=== PATIENT | female | born 1995 | race Caucasian/White ===

== ENCOUNTER 2020-04-24 11:22 | Outpatient (CLI) | payer OTHER, SELFPAY ==
[2020-04-24 12:13] LABS: Beta HCG Quantitative 167.73 mIU/ML
== END 2020-04-24 11:23 | disposition home or self-care (01) ==
PROVIDERS: PCP Internal Medicine; Visit Provider Obstetrics & Gynecology
DX: N92.5 Other specified irregular menstruation (principal)
CPT/HCPCS: 36415; 84702

== ENCOUNTER 2020-05-09 06:46 | Outpatient (RCR) | payer OTHER, SELFPAY ==
[2020-05-01 08:05] LABS: Beta HCG Quantitative 8.14 mIU/ML
[2020-05-09 07:46] LABS: Beta HCG Quantitative < 2.39 mIU/ML
== END 2020-07-30 23:59 | disposition home or self-care (01) ==
LOC: ANHLAB 06:46
PROVIDERS: PCP Internal Medicine; Visit Provider Obstetrics & Gynecology
DX: O03.4 Incomplete spontaneous abortion without complication (principal)
CPT/HCPCS: 36415; 84702

== ENCOUNTER 2020-10-22 09:29 | Outpatient (CLI) | payer OTHER, SELFPAY ==
--- NOTE | ~2020-10-22 | US_ITS ---
EXAMINATION: US OB /maternal detail EXAM DATE: 10/22/2020 10:41 INDICATION: anatomy. 2nd trimester. TECHNIQUE: Pelvic obstetrical transabdominal sonogram was performed by a technologist. There are mu ltiple grayscale and Doppler images available for interpretation. There are no earlier studies of th is gestation for comparison. FINDINGS: There is a single fetus identified in vertex presentation with a heart rate of 142 beats pe r minute. The placenta is located in the posterior position. There is no sonographic evidence of ret roplacental hemorrhage identified. The amniotic fluid index is 14.4 centimeters, which is normal. Shanon cental margin to internal cervical os distance is 5.6 cm. BIOMETRIC DATA: Biparietal diameter (BPD): 5.5cm ----------------> 22 weeks 6 days. Head circumference (HC): 19.8 cm ----------------> 22 weeks 0 days. Abdominal circumference (AC): 16.9 cm ----------> 21 weeks 6 days. Femur length (FL): 3.8 cm --------------------------> 22 weeks 1 day. These measurements are concordant. HC/AC ratio is 1.17 (The 5th -- 95th percentile range is 1.05-1.22. Estimated weight is 469 g +/- 70 g. This is the 82nd percentile when the currently reported cl inical gestation age 21 weeks 2 days, clinical estimated date of delivery (DIANE-OPE) 03/02/2021 is used. estimated gestational age based on measurements from this exam is 22 weeks 2 days, with an est imated date of delivery (DIANE-AUA) 02/23/2021. ANATOMIC SURVEY: The following anatomy is identified and is sonographically normal in appearance: Cerebral ventricles Cerebellum Cisterna magna Nuchal fold CTL-spine Four-chamber heart Diaphragm Stomach Kidneys Bladder Three-vessel cord Cord insertion IMPRESSION: 1. Single fetus in vertex presentation with heart rate 142 beats per minute. 2. Estimated weight of 469 grams, 82nd percentile using the currently reported clinical gestat ion age of 21 weeks 2 days, DIANE(OPE) 03/02/2021. 3. Normal anatomic survey and Amniotic Fluid Index. Reviewed, dictated and finalized at location B. ARCH NEUROPSYCHOLOGIST IMPRESSION: 1. Single fetus in vertex presentation with heart rate 142 beats per minute. 2. Estimated weight of 469 grams, 82nd percentile using the currently re ported clinical gestation age of 21 weeks 2 days, DIANE(OPE) 03/02/2021. 3. Normal anatomic survey and Amniotic Fluid Index.
== END 2020-10-22 09:30 | disposition home or self-care (01) ==
LOC: ANHIMG 09:46
PROVIDERS: PCP Internal Medicine; Visit Provider Student in an Organized Health Care Education/Training Program
DX: Z34.92 Encounter for supervision of normal pregnancy, unspecified, second trimester (principal); Z3A.21 21 weeks gestation of pregnancy
CPT/HCPCS: 76805

== ENCOUNTER 2021-02-11 21:00 | Observation (INO) | payer OTHER, SELFPAY ==
--- NOTE | 2021-02-11 21:00 | PC.NURSE ---
This patient, Jose Arzola, admitted to the OB room Labor/Delivery/Recovery 106 for observation. Patient/family oriented to hospital policies and general routines including ID bracelet, bed and alarms, visiting hours, pain management, procedures, bathroom and other care routines, personal items, smoking policy, room service/diet, and visiting hours. Patient/Family are encouraged to report perceived risks to care and to ask questions if they do not understand what they are told or what they should do.
[2021-02-11 21:11] VITALS: TEMP 36.6
--- NOTE | 2021-02-11 21:15 | PC.NURSE ---
Contractions all evening. Increased in intensity for past hour. No leakage of fluid.
--- NOTE | 2021-02-11 22:45 | PC.NURSE ---
Pt has not felt contractions since arrival. 2 contractiions noted with some irritabilty noted. Discussed labor and increase in contraction intensity with labor. Pt to be discharged to home. Pt verablizes understanding on when to return.
--- NOTE | 2021-02-12 07:00 | P.PNOB_ITS ---
OB - Triage/Final Diagnosis Visit Information Date of evaluation: 02/11/21 Reason for evaluation: threatened labor Comments/Additional reasons for admission: I have assessed the risk for this patient, Jose Arzola, and determined that she would benefit from obse rvation care. Evaluation Vital signs: Vital Signs - 24 hr 02/11/21 21:11 Temperature 36.6 C
== END 2021-02-11 22:55 | disposition home or self-care (01) ==
PROVIDERS: Admitting Provider Student in an Organized Health Care Education/Training Program; PCP Internal Medicine; Visit Provider Student in an Organized Health Care Education/Training Program
DX: O47.1 False labor at or after 37 completed weeks of gestation (principal); Z3A.37 37 weeks gestation of pregnancy
CPT/HCPCS: G0378; G0379

== ENCOUNTER 2021-02-16 10:01 | Inpatient (IN) | payer OTHER, SELFPAY ==
[2021-02-16] VITALS (18 sets, daily range): BP systolic 100–157; BP diastolic 52–89; PULSE 87–118
[2021-02-16] MEDS: AMPICILLIN 2 GM/NS 100 ML 2 GM/100 ML BAG IVPB (12:15)
[2021-02-16] MEDS: LACTATED RINGERS 1,000 ML 125 ML IV CONT ×2 (12:15→22:11)
[2021-02-16 12:28] LABS: Basophils Percent Auto 0.1 % (0.2-1.2); Eosinophils Percent Auto 0.4 % (0-4.4); Hematocrit 39.6 % (37.0-47.0); Hemoglobin 13.3 g/dL (12.0-15.0); Immature Granulocyte Absolute 0.04 K/mm3 (0.00-0.031); Immature Granulocyte Percent A 0.4 % (0-0.5); Lymphocytes Absolute Auto 1.52 K/mm3 (0.9-3.2); Lymphocytes Percent Auto 13.6 % (18.3-44.2); Mean Corpuscular HGB Conc 33.6 g/dl (32-36); Mean Corpuscular Hemoglobin 33.4 pg (26-34); Mean Corpuscular Volume 99.5 fl (80-100); Mean Platelet Volume 10.9 fl (7.4-10.4); Monocytes Absolute Auto 0.6 K/mm3 (0.1-0.6); Monocytes Percent Auto 5.3 % (2.6-8.5); Neutrophils Percent Auto 80.2 % (45.5-73.1); Platelet Count Result 213 k/mm3 (150-375); Red Blood Count 3.98 M/mm3 (4.2-5.4); Red Cell Distribution Width 12.9 % (11.5-14.5); White Blood Count 11.2 K/mm3 (4.5-10.0)
--- NOTE | 2021-02-16 14:50 | LDADM ---
This patient, Jose Arzola, was admitted to Labor/Delivery/Recovery 105 on 02/16/21 at 10:01. Plans for labor, pain management and were discussed with patient. Patient/family oriented to hospital policies and general routines including ID bracelet, bed and alarms, visiting hours, pain management, procedures, bathroom and other care routines, personal items, smoking policy, room service/diet and guest tray routines, security routines, call light and visiting hours. Patient/Family are encouraged to report perceived risks to care and to ask questions if they do not understand what they are told or what they should do. See OBIX for further documentation.
--- NOTE | 2021-02-16 16:00 | PM.IMHP ---
H&P: HPI History of Present Illness Date/Time: 02/16/21 1600 25 y/o at 38 weeks here with SROM at 0800 today, clear fluid. RomPlus positive. Intermittent contractions. GBS pos, receiving ampicillin. Chief Complaint: My water broke. Review of Systems Review of Systems: All systems reviewed & are unremarkable except as noted in HPI and below PMFSH Past Medical History Medical History Overweight or obesity and not yet delivered Family History Family History Other No pertinent family history Social History Social History Smoking status: Never smoker Substance use: never Gender identity (if verbalized by the patient): Female Spiritual care concerns: No Meds Home Medications and Allergies Home Medications Medication Instructions Recorded Confirmed Type PNV cmb#95-ferrous fumarate-FA 1 tablet PO DAILY 02/10/21 02/16/21 History [] valacyclovir 500 mg PO DAILY 02/10/21 02/16/21 History Allergies Allergy/AdvReac Type Severity Reaction Status Date / Time latex Allergy Unknown SWELLING Verified 02/16/21 14:59 Vital Signs Vital Signs - 24 hr 02/16/21 12:50 02/16/21 14:14 02/16/21 14:15 Pulse Rate 102 H 118 H 101 H Blood Pressure 149/77 H 157/88 H 132/59 L 02/16/21 15:06 02/16/21 16:14 02/16/21 16:30 Pulse Rate 95 97 101 H Blood Pressure 125/76 134/76 131/71 02/16/21 17:00 02/16/21 17:30 02/16/21 18:00 Pulse Rate 95 92 105 H Blood Pressure 121/65 125/65 130/75 02/16/21 18:31 Pulse Rate 101 H Blood Pressure 138/89 Exam Const: Orientation/consciousness: patient oriented x3 Other: Well-developed, well-nourished female in no acute distress. Neck: Thyroid: thyroid normal Lymphatic: no lymphadenopathy noted (in neck, axilla or inguinal nodes) Resp: Effort & Inspection: normal respiratory effort Auscultation: clear to auscultation bilaterally Cardio: Rate: regular rate Rhythm: regular rhythm Heart sounds: S1 normal heart sound present and S2 normal heart sound present GI: Other: ABD: Soft, nontender, gravid. Vertex. NST reactive. TOCO: irregular contractions. : General: Yes no CVA tenderness Other: EXT GEN/vagina: BLE neg. Cervix 2/50/-2. Vertex. Back/Spine/Pelvis: Back: no CVA tenderness Skin: General skin exam: normal color and no rashes or lesions noted Neuro: General: patient oriented x3 Extrem: Other: Extremities: nontender with no edema Psych: Mental Status: mental status grossly normal Affect: normal affect H&P: Results Labs Labs: Short CBC 02/16/21 Range/Units 12:07 WBC 11.2 H (4.5-10.0) K/mm3 Hgb 13.3 (12.0-15.0) g/dL Hct 39.6 (37.0-47.0) % Plt Count 213 (150-375) k/mm3 Assessment and Plan Assessment and plan (1) SROM (spontaneous rupture of membranes): Status: Acute Assessment and Plan: A: IUP at 38 weeks with SROM, GBS pos. P: Ampicillin. Augment labor with oxytocin as needed. Anticipate . (2) GBS (group B Streptococcus carrier), +RV culture, currently : Code(s): O99.820 - Streptococcus B carrier state complicating Status: Acute
[2021-02-16] MEDS: AMPICILLIN 1 GM/NS 50 ML 1 GM/50 ML BAG IVPB ×2 (16:09→19:55)
[2021-02-16] MEDS: OXYTOCIN 30 UNITS/NS 500 ML 30 UNITS/500 ML BAG 6 UNITS IV CONT (16:09)
--- NOTE | 2021-02-16 17:54 | WPDANESEPP ---
Anes - Eval Pre Procedure Procedure: Labor epidural Date/Time: 02/16/21 17:54 Surgeon: Omar Preop Diagnosis: Abd pain with contractions Pre Op Diagnosis: Labor Patient Data Age: 25 Gender: F Height: Weight: Last Vital Signs Pulse 92 02/16/21 17:30 BP 125/65 02/16/21 17:30 Allergies Allergy/AdvReac Type Severity Reaction Status Date / Time latex Allergy Unknown SWELLING Verified 02/16/21 14:59 Home Medications Medication Instructions Recorded Confirmed Type PNV cmb#95-ferrous fumarate-FA 1 tablet PO DAILY 02/10/21 02/16/21 History [] valacyclovir 500 mg PO DAILY 02/10/21 02/16/21 History Laboratory Tests 02/16/21 02/16/21 02/16/21 12:06 12:06 12:07 WBC 11.2 K/mm3 H K/mm3 (4.5-10.0) RBC 3.98 M/mm3 L M/mm3 (4.2-5.4) Hgb 13.3 g/dL g/dL (12.0-15.0) Hct 39.6 % % (37.0-47.0) MCV 99.5 fl fl (80-100) MCH 33.4 pg pg (26-34) MCHC 33.6 g/dl g/dl (32-36) RDW 12.9 % % (11.5-14.5) Plt Count 213 k/mm3 k/mm3 (150-375) MPV 10.9 fl H fl (7.4-10.4) Immature Gran % (Auto) 0.4 % % (0-0.5) Neut % (Auto) 80.2 % H % (45.5-73.1) Lymph % (Auto) 13.6 % L % (18.3-44.2) [place] % (Auto) 5.3 % % (2.6-8.5) Eos % (Auto) 0.4 % % (0-4.4) Baso % (Auto) 0.1 % L % (0.2-1.2) Lymph # (Auto) 1.52 K/mm3 K/mm3 (0.9-3.2) [place] # (Auto) 0.6 K/mm3 K/mm3 (0.1-0.6) Eos # (Auto) 0.0 K/mm3 K/mm3 (0-0.3) Baso # (Auto) 0.0 K/mm3 K/mm3 (0.0-0.1) Abs Immat Gran (auto) 0.04 K/mm3 H K/mm3 (0.00-0.031) Absolute Neuts (auto) 9.0 K/mm3 H K/mm3 (1.3-6.7) Absolute Nucleated RBC 0.0 K/mm3 K/mm3 (0.0-0.012) Nucleated RBC % 0.0 % % (0.0-0.2) RPR Pending Blood Type A Positive Antibody Screen Negative Patient hx anesthesia problems: none Family hx anesthesia problems: none PMFSH Past Medical History Medical History Overweight or obesity and not yet delivered Family History Family History Other No pertinent family history Social History Social History Smoking status: Never smoker Substance use: never Gender identity (if verbalized by the patient): Female Spiritual care concerns: No Exam Day of Procedure 02/16/21 17:54 Patient weight: overweight Airway: Mallampati scale class II Neurological: alert and oriented
[2021-02-17] VITALS (300 sets, daily range): BP systolic 67–147; BP diastolic 31–104; PULSE 82–208; TEMP 36.2–37.6; O2SAT 82–100
[2021-02-17] MEDS: AMPICILLIN 1 GM/NS 50 ML 1 GM/50 ML BAG IVPB ×6 (00:16→22:23)
[2021-02-17] MEDS: FAMOTIDINE 20 MG/2 ML VIAL IV PUSH (02:21)
[2021-02-17] MEDS: LACTATED RINGERS 1,000 ML 125 ML IV CONT ×3 (08:04→14:28)
--- NOTE | 2021-02-17 08:33 | PM.OBPNLAB ---
Pain Control Date/time seen: 02/17/21 08:33 Comments: Was feeling painful contractions. Now comfortable with epidural. Pelvic Exam Dilation (cm): 3 Effacement (%): 50 station: -2 Comments: Forebag noted. AROM with clear fluid. IUPC placed. Contractions Contraction frequency: 4 Contraction pattern: Regular Status status: Category l Assessment and Plan Comments: A: IUP at 38 1/7 weeks with SROM. P: Augmenting labor. Ampicillin for GBS colonization.
[2021-02-17] MEDS: CALCIUM CARBONATE (TUMS) 500 MG (200 MG ELEMENTAL) (15:16)
[2021-02-17] MEDS: OXYTOCIN 30 UNITS/NS 500 ML 30 UNITS/500 ML BAG 6 UNITS IV CONT (15:33)
[2021-02-18] VITALS (136 sets, daily range): BP systolic 95–143; BP diastolic 48–92; PULSE 99–159; RESP 15–20; TEMP 36.4–37.7; O2SAT 87–100
[2021-02-18] MEDS: CALCIUM CARBONATE (TUMS) 500 MG (200 MG ELEMENTAL) PO (01:48)
[2021-02-18] MEDS: AMPICILLIN 1 GM/NS 50 ML 1 GM/50 ML BAG IVPB (03:03)
--- NOTE | 2021-02-18 04:48 | P.PNAN_ITS ---
Anes - Initial Pre Proc Eval Procedure: Operation Date: 02/18/21 05:00 Proposed Procedures p Section - Joshua Hameed MD Date/Time: 02/18/21 04:48 Surgeon: Ayan Nelson MD Pre Op Diagnosis: Labor Patient Data Age: 25 Gender: F Height: Weight: Last Vital Signs Temp 37.6 C H 02/18/21 04:21 Pulse 125 H 02/18/21 04:45 BP 123/70 02/18/21 04:45 Pulse Ox 100 02/18/21 04:43 Allergies Allergy/AdvReac Type Severity Reaction Status Date / Time latex Allergy Unknown SWELLING Verified 02/16/21 14:59 Home Medications Medication Instructions Recorded Confirmed Type PNV cmb#95-ferrous fumarate-FA 1 tablet PO DAILY 02/10/21 02/16/21 History [] valacyclovir 500 mg PO DAILY 02/10/21 02/16/21 History Patient hx anesthesia problems: none Family hx anesthesia problems: none [facility] Past Medical History Medical History Overweight or obesity and not yet delivered Family History Family History Other No pertinent family history Social History Social History Smoking status: Never smoker Substance use: never Gender identity (if verbalized by the patient): Female Spiritual care concerns: No Anes - Eval Final PreProcedure Day of Procedure 02/18/21 04:48 Patient weight: obese Heart: regular rate and rhythm Lungs: clear to auscultation and normal air movement Airway: Mallampati scale class II Neurological: alert and oriented Last oral intake: >/= 8 hours ASA classification: II Emergent: no Anesthetic plan: proceed Anesthesia type and monitoring: regional epidural and standard monitoring Informed Consent: The patient's anesthetic plan and its attendant risks and benefits were discussed with the patient/family/POA. Questions were solicited and answers provided to the satisfaction of the patient/family/POA.
--- NOTE | 2021-02-18 05:16 | PM.OBPNLAB ---
Pain Control Date/time seen: 02/18/21 05:16 Comments: Comfortable. Pelvic Exam Dilation (cm): 8 Effacement (%): 90 station: -1 Contractions Contraction frequency: 3 Contraction pattern: Regular Status status: Category l Assessment and Plan Comments: A: Arrest of dilation. Cervix unchanged for hours despite adequate contractions by IUPC monitoring. P: Offered primary . She understands risks of surgery to include risks of anesthesia, risks of pain, infection, bleeding, blood products, thromboembolic phenomena and damage to adjacent structures such as bowel, bladder, ureters, blood vessels and nerves. She understands all these risks and elects to proceed with primary delivery.
[2021-02-18] MEDS: KETOROLAC 30 MG/ML VIAL (*BKC) IV PUSH (05:44)
--- NOTE | 2021-02-18 06:24 | P.PCNOB_ITS ---
OB - Delivery Note Procedure Delivery date: 02/18/21 Procedure: Procedures Operation Date: 02/18/21 05:00 Actual Procedure Side Surgeon p Section Not Applicable Joshua Hameed MD Primary low transverse delivery events: Prolonged Rupture of Membrane Intrapartal events: Prolonged Labor > 20 hours Induction method: none Delivery augmentation: pitocin Delivery monitor: external FHT, external uterine and internal uterine Route of delivery: Specimen: Yes (cord blood, placenta) Quantitative Blood Loss (ml): 280 Anesthesia type: Epidural Disposition: PACU Complications: None Narrative: The patient was taken to the operating room where she was prepared a nd draped in the usual sterile fashion in dorsal supine position with a leftward tilt. She received cefazolin preoperatively. Spinal anesthesia was found to be adequate. A Pfannenstiel skin incision was made and carried through to the underlying layer of the fascia. The fascia was incised in the midline and the incision was extended laterally. The fascia was dissected free of the underlying rectus muscles. The rectus muscles were in the midline. The peritoneum was identified, tented up and entered sharply. The peritoneal incision was extended superiorly and inferiorly with good visualization of the bladder. The bladder blade was placed. The vesicouterine peritoneum was identified, tented up and entered sharply. The incision was extended laterally and the bladder flap was developed. The bladder blade was replaced. The uterus was then incised sharply in a transverse fashion along the lower uterine segment. The incision was extended laterally. The infant was noted to be in occiput posterior position. The 's head was delivered atraumatically to the sterile field, followed by the body. The nose and mouth were bulb suctioned. After a delay, the cord was clamped and cut. The infant was handed off the field. Cord blood was collected. The placenta was removed manually and was passed off the field. The uterus was exteriorized and cleared of all clots and debris. The uterine incision was reapproximated using 0 Monocryl in a running, locked fashion. A second, imbricating layer of the same suture was place. Excellent hemostasis resulted as did excellent reapproximation of the normal anatomy. The uterus was returned the abdomen. The pelvis was irrigated copiously with warmed normal saline. Rigorous hemostasis was assured. The fascial layer was reapproximated using 0 Vicryl in a running fashion. The skin was closed with a running, subcuticular stitch of 4 0 Vicryl. Dermaflex was applied externally. Sponge, lap, needle and instrument counts were correct. The patient was taken to the recovery room in stable condition. The infant went to the nursery in stable condition. I was present and scrubbed the entire procedure. Baby Date of : 02/18/21 Time of : 05:40 Weeks of gestation at delivery: 38 Infant gender: Male Weight (pounds): 7 Weight (ounces): 4 presentation: vertex Placenta delivery description: Manual Removal and Normal Configuration cord vessel description: 3 Vessels and Delayed Cord Clamping score one minute: 9 score five minutes: 9
--- NOTE | 2021-02-18 06:28 | PM.OBDSVD ---
DS: Admitting Diagnosis Admitting Diagnosis Admitting Diagnosis: IUP at 38 2/7 weeks SROM GBS positive DS: Discharge Diagnosis Discharge Diagnosis (1) GBS (group B Streptococcus carrier), +RV culture, currently : Code(s): O99.820 - Streptococcus B carrier state complicating Status: Acute (2) SROM (spontaneous rupture of membranes): Status: Acute OB - DS: Summary OB Procedures : None OB Procedures Intrapartum: OB Procedures: : None Peripartum Data Procedures: Procedures Operation Date: 02/18/21 05:00 Actual Procedure Side Surgeon p Section Not Applicable Joshua Hameed MD Discharge Plan Discharge Attending physician on discharge: Joshua Hameed Consulting providers: Marvel Nolen Discharging Clinician: Joshua Hameed Patient Disposition: Home, Self-Care Activity: may shower, may drive after 2 weeks and pelvic rest Diet: regular Wound Care Instructions: incision open to air Discharge Instructions: Call or return if temperature above 100.4? F, increased abdominal pain, increased vaginal bleeding or any new problems. Education: Mom and Baby Guide Given to: Mother Follow-Up: Call your delivering provider's office for an appointment to be seen in: 4 Weeks Mom and baby [facility] for the follow-up appointment. Appointment Date/Time: February 22, 2021 at 9:00 am What to expect at your follow-up visit: Physical Assessment Call [phone] if you are unable to keep your appointment time. BREAST CARE: * Wear a snug supportive bra. * For engorgement discomfort: Breast Feeding: * Apply warm moist washcloths * Express milk as needed to relieve engorgement * Wear loose clothing * For sore nipples: * Identify correct latch-on * Apply warm moist washcloths before and after nursing * Air dry nipples after nursing * May apply Lansinoh cream to nipples ABDOMINAL INCISION: * Allow incision to air dry * Do NOT use lotions for powders on your incision * When showering, allow soap and water to run over the incision, but do not wash incision PERINEAL CARE: * Until bleeding stops, use your tl bottle after urinating * Change your pad frequently throughout the day * No tub baths until seen by your physician - You may shower ACTIVITY: * Rest as much as possible. * Do not exercise or lift anything heavier than your baby (such as laundry or other children.) * Avoid stairs or driving as much as possible. * Do not put anything into the vagina. No douching, tampons, or sexual activity until seen by physician. NOTIFY PHYSICIAN IF YOU HAVE ANY QUESTIONS OR IF ANY OF THE FOLLOWING SYMPTOMS OCCUR: * If your incision becomes red, swollen, or more painful than what you have experienced in the hospital. * If your vaginal bleeding becomes foul smelling. * If your vaginal bleeding becomes more heavy than a period or if your bleeding changes from pink to bright red. However, you may pass an occasional walnut-sized clot once or twice for the first week . * If you experience a sharp, shooting pain in you calves. * If you discover a hard, reddened area on your breast or if you experience flu-like symptoms. DIET: * Eat regular, well-balanced meals. * Drink plenty of fluids daily. If , drink to thirst. Stand Alone Forms: General Discharge Information Follow-up/Referrals: Ayan Nelson MD [Physician] - 4 Weeks Discharge Medications: New ibuprofen 600 mg tablet 600 mg PO Q6H PRN (Reason: cramps) Qty: 30 RF: 0 hydrocodone-acetaminophen 5-325 mg tablet 1 - 2 tablet PO Q4-6H Qty: 30 RF: 0 hydrocodone-acetaminophen 5-325 mg tablet 1 tablet PO Q6H PRN (Reason: pain) Qty: 28 RF: 0 Continued valacyclovir 500 mg Tablet 500 mg PO DAILY RF: 0 PNV cmb#95-ferrous fumarate-FA [] 28 mg i
[2021-02-18] MEDS: OXYTOCIN 30 UNITS/NS 500 ML 30 UNITS/500 ML BAG 125 UNITS IV CONT (07:32)
--- NOTE | 2021-02-18 09:46 | OBPPTRN ---
0824 Patient transferred to post room #282 via stretcher. Support person present. Oriented to unit, room, information board, rooming in, admission packet and security measures. Patient verbalizes understanding.
[2021-02-18] MEDS: MULTIVIT/MIN/PREN/FOL AC/IRON TABLET 1 TAB PO (18:58)
[2021-02-18] MEDS: DOCUSATE SODIUM 100 MG CAPSULE PO (18:58)
[2021-02-18] MEDS: HYDROcodone/acetaminophen (*CRX) 5-325 MG TABLET 1 TAB PO ×2 (18:58→22:45)
[2021-02-18] MEDS: valACYclovir HCL 500 MG TABLET PO (20:25)
[2021-02-19 04:00] VITALS: BP 120/75; PULSE 100; RESP 16; TEMP 36.8; O2SAT 98
[2021-02-19] MEDS: HYDROcodone/acetaminophen (*CRX) 5-325 MG TABLET 1 TAB PO ×5 (04:33→22:06)
[2021-02-19 05:23] LABS: Basophils Percent Auto 0.2 % (0.2-1.2); Eosinophils Absolute Auto 0.1 K/mm3 (0-0.3); Eosinophils Percent Auto 0.5 % (0-4.4); Hematocrit 29.2 % (37.0-47.0); Hemoglobin 9.4 g/dL (12.0-15.0); Immature Granulocyte Absolute 0.07 K/mm3 (0.00-0.031); Immature Granulocyte Percent A 0.5 % (0-0.5); Lymphocytes Absolute Auto 1.83 K/mm3 (0.9-3.2); Lymphocytes Percent Auto 14.1 % (18.3-44.2); Mean Corpuscular HGB Conc 32.2 g/dl (32-36); Mean Corpuscular Hemoglobin 33.2 pg (26-34); Mean Corpuscular Volume 103.2 fl (80-100); Mean Platelet Volume 10.7 fl (7.4-10.4); Monocytes Absolute Auto 1.1 K/mm3 (0.1-0.6); Monocytes Percent Auto 8.2 % (2.6-8.5); Neutrophils Percent Auto 76.5 % (45.5-73.1); Platelet Count Result 195 k/mm3 (150-375); Red Blood Count 2.83 M/mm3 (4.2-5.4); Red Cell Distribution Width 13.3 % (11.5-14.5)
[2021-02-19] MEDS: DOCUSATE SODIUM 100 MG CAPSULE PO ×2 (07:26→16:29)
[2021-02-19] MEDS: MULTIVIT/MIN/PREN/FOL AC/IRON TABLET 1 TAB PO (07:26)
[2021-02-19] MEDS: POLYSACCHARIDE IRON COMPLEX 150 MG CAPSULE PO ×2 (07:27→16:29)
[2021-02-19] MEDS: valACYclovir HCL 500 MG TABLET PO (07:27)
[2021-02-19] MEDS: IBUPROFEN 600 MG TABLET PO ×3 (07:28→22:07)
[2021-02-19 07:45] VITALS: BP 129/84; PULSE 102; RESP 16; TEMP 36.6; O2SAT 96
--- NOTE | 2021-02-19 07:47 | WPDANLDPN2 ---
Anes-Prog Note L&D Date/Time: 02/19/21 07:47 Comfortable throughout: section Neuraxial method: epidural Epidural/Spinal procedure site: clean & non-tender Neuro status: Neuro function grossly intact. Cardiovascular status: normal Respiratory status: normal Airway patency: baseline Mental status: baseline Post-Op hydration status: normal Vital Signs: Last Vital Signs Temp 36.8 C 02/19/21 04:00 Pulse 100 02/19/21 04:00 Resp 16 02/19/21 04:00 BP 120/75 02/19/21 04:00 Pulse Ox 98 02/19/21 04:00 Pain score (VAS): none I/O: Intake & Output 02/18/21 02/18/21 02/19/21 15:59 23:59 07:59 Intake Total 1500 Output Total 160 1575 300 Balance -160 -75 -300 Post-procedural complaints: none Patient feedback: Patient satisfied with anesthetic care.
--- NOTE | 2021-02-19 07:48 | WPDANLDNPN2 ---
Anes-Prog Note L&D-Neuraxial Date/Time: 02/19/21 07:48 Neuraxial medications: epidural PF morphine Opiod-related complaints: none Patient feedback: Patient satisfied with post-operative pain management.
--- NOTE | 2021-02-19 07:56 | P.PNOB_ITS ---
OB - PN: Subj Subjective Date/time seen: 02/19/21 07:56 Interval history: Patient doing well this AM. she has not yet ambulated out of bed. She is tolerating PO. She reports adequate pain control. Her bleeding is normal and she reports normal lochia. She denies fever, chills, N/V. She has not yet passed flatus. Patient comments: no complaints and pain well controlled; no flatus present OB - PN: Obj Data Labs CBC & Chem 7: 02/19/21 04:39 Labs: Laboratory Results - last 24 hr 02/19/21 04:39 WBC 13.0 H RBC 2.83 L Hgb 9.4 L D Hct 29.2 L MCV 103.2 H MCH 33.2 MCHC 32.2 RDW 13.3 Plt Count 195 MPV 10.7 H Immature Gran % (Auto) 0.5 Neut % (Auto) 76.5 H Lymph % (Auto) 14.1 L [place] % (Auto) 8.2 Eos % (Auto) 0.5 Baso % (Auto) 0.2 Lymph # (Auto) 1.83 [place] # (Auto) 1.1 H Eos # (Auto) 0.1 Baso # (Auto) 0.0 Abs Immat Gran (auto) 0.07 H Absolute Neuts (auto) 10.0 H Absolute Nucleated RBC 0.0 Nucleated RBC % 0.0 OB - PN A/P Plan day: 1 Plan: routine care Comments: patient doing well this AM s/p bhatti tolerating PO H/H 9.12/28, continue iron supplementations continue routine PP care plan for infant circumcision today. Risks, benefits and alternatives discussed with patient. Consent obtained. Time Spent With Patient Time: Total time spent is greater than 50% in coordination of care (as documented) at patient's floor/unit and/or counseling patient: Time with patient: less than 15 minutes Review of Systems Constitutional: Constitutional: Reports no additional constitutional complaints Cardiovascular: Cardiovascular: Reports no additional cardiovascular complaints Respiratory: Respiratory: Reports no additional respiratory complaints Gastrointestinal: Gastrointestinal: Reports no additional gastrointestinal complaints Genitourinary: Genitourinary: Reports no additional female genitourinary complaints Exam Const: General: comfortable and no acute distress Resp: Effort & Inspection: normal respiratory effort Auscultation: clear to auscultation bilaterally Cardio: Rate: regular rate GI: GI Palp: Yes Soft to palpation and Yes Tenderness to palpation present (GI) (appropriately tender around incision ) Auscultation: normal bowel sounds Other: fundus firm and below umbilicus Incision C/D/I Urinary Catheter: Urinary Catheter: urine clear Psych: Appearance: grossly normal Mental Status: mental status grossly normal Affect: normal affect
[2021-02-19 10:35] LABS: Rapid Plasma Reagin Non-Reactive (NonReactive)
--- NOTE | 2021-02-19 11:25 | PC.NURSE ---
Upon entering mother has to breast in football with a slightly shallow latch. Pt has her [id number] on Facetime with her assisting with latching. Offered a pillow for support, pt. declines reporting not difficulties with holding infant. Reviewed infant feeding cues, frequencies, duration of feedings, feeding elimination flow sheet, and signs of adequate intake. Reviewed positioning/alignment in football, holding breast in C and asymmetrical latch on. Infant nursed eagerly, with steady draws and frequent swallowing noted followed with long pausing. Suggested mother stimulate infant while feeding to keep awake and nursing effectively for increased intake, increased stimulation and to assist with maintaining deep latch. Reviewed signs of a correct latch, effective nursing and suck swallow ratio. would slip to shallow latch. Demonstrated how to adjust latch more deeply while feeding. Mother reports she can feel is latched more deeply and denies pain with shallow latch. Nipple care reviewed of lanolin after feedings warm compresses as needed. Instructed mother to call out for RN assistance if she is unable to latch for feeding or she has discomfort with nursing. Instructed feeding should be initiated three hours from start of last feeding or if feeding cues are noted before. Mother voiced understanding of information shared.
[2021-02-19 18:30] VITALS: BP 137/84; PULSE 98; RESP 18; TEMP 36.8; O2SAT 98
[2021-02-20] MEDS: IBUPROFEN 600 MG TABLET PO (05:38)
[2021-02-20] MEDS: HYDROcodone/acetaminophen (*CRX) 5-325 MG TABLET 1 TAB PO (05:38)
[2021-02-20 07:00] VITALS: BP 133/75; PULSE 90; RESP 18; TEMP 36.4; O2SAT 100
--- NOTE | 2021-02-20 07:24 | PM.OBDSVD ---
DS: Admitting Diagnosis Admitting Diagnosis Admitting Diagnosis: spontaneous rupture of membranes intrauterine at term OB - DS: Summary OB Procedures : None OB Procedures Intrapartum: OB Procedures: : None Peripartum Data Procedures: Procedures Operation Date: 02/18/21 05:00 Actual Procedure Side Surgeon p Section Not Applicable Joshua Hameed MD Time Spent with Patient Time attestation: Total time spent providing and/or coordinating discharge services: DS: Data Data Completed and Pending Pending studies at discharge: Pending at discharge 02/18/21 05:41 Surgical [PTH] Routine Labs on day of discharge: Labs from last 24 hours 02/16/21 12:06 RPR Non-reactive Discharge Plan Discharge Attending physician on discharge: Joshua Hameed Discharging Clinician: Joshua Hameed Patient Disposition: Home, Self-Care Activity: may shower, may drive after 2 weeks and pelvic rest Diet: regular Wound Care Instructions: incision open to air Discharge Instructions: Call or return if temperature above 100.4? F, increased abdominal pain, increased vaginal bleeding or any new problems. Stand Alone Forms: General Discharge Information Follow-up/Referrals: Ayan Nelson MD [Physician] - 4 Weeks Discharge Medications: New hydrocodone-acetaminophen 5-325 mg tablet 1 - 2 tablet PO Q4-6H Qty: 30 RF: 0 hydrocodone-acetaminophen 5-325 mg tablet 1 tablet PO Q6H PRN (Reason: pain) Qty: 28 RF: 0 ibuprofen 600 mg tablet 600 mg PO Q6H PRN (Reason: cramps) Qty: 30 RF: 0 No Action valacyclovir 500 mg Tablet 500 mg PO DAILY RF: 0 PNV cmb#95-ferrous fumarate-FA [] 28 mg iron- 800 mcg Tablet 1 tablet PO DAILY RF: 0 Date of admission: 02/16/21 10:01 Primary Care Provider: Jose De Jesus*Moustapha Admitting Provider: Ayan Nelson Attending physician on admission: Aayn Nelson Condition: Stable
[2021-02-20] MEDS: DOCUSATE SODIUM 100 MG CAPSULE PO (08:37)
[2021-02-20] MEDS: POLYSACCHARIDE IRON COMPLEX 150 MG CAPSULE PO (08:37)
[2021-02-20] MEDS: MULTIVIT/MIN/PREN/FOL AC/IRON TABLET 1 TAB PO (08:37)
--- NOTE | 2021-02-20 09:55 | PC.NURSE ---
Consult with pt., mother reports tenderness to left nipple with feeding. Skin is intact bilat. Observed mother latching in cradle with shallow latch. Reviewed signs of a deep latch vs shallow. requested mother break latch. Reviewed positioning/alignment in football, holding breast in C and guided asymmetrical latch on. was able to latch correctly with first attempt. nursed eagerly, with steady draws and frequent swallowing noted. would slip to shallow latch with pausing, mother reports tenderness. Demonstrated how to adjust latch more deeply while feeding. Suggested mother stimulate while feeding to increase stimulate, increase intake and to assist with maintaining deep latch. Mother reports she can feel change in latch and has no tenderness. Nipple care reviewed of lanolin after feedings, warm compresses as needed. Mother is concerned has 7% weight loss, advised to keep infant stimulated for effective feeding while at breast and to wake by three hours from start of last feeding. Mother will return for follow up on , advised to call ICP if less than required output or not feeding as required. Mother is able to independently latch with appropriate positioning/alignment. She d is feeding as required and waking infant to feed if needed. has had at least 7 effective feedings in the past 24 hours, and is currently meeting outcomes for weight, output, jaundice and feeding frequencies. Mother states she feels confident to continue effective at home. Reviewed transition to breast milk, signs of adequate intake, and engorgement/relief. Instructed to call ICP if intake/output less than required. Reviewed regular medications mother is taking. Information provided per Ericka. Reviewed community resources on the [facility] website and in the Mom/Baby guide. Information on outpatient services provided. Mother has no further questions at this time.
[2021-02-22 09:51] VITALS: BP 132/79; PULSE 88; RESP 20; TEMP 36.7; O2SAT 100
== END 2021-02-20 10:10 | disposition home or self-care (01) | DRG 788 ==
LOC: ANHLDR 02-18 06:30 → ANHOB2 02-18 08:46
PROVIDERS: Obstetrics & Gynecology; Admitting Provider Obstetrics & Gynecology; PCP Internal Medicine; Visit Provider Student in an Organized Health Care Education/Training Program
PROC: 10D00Z1 Extraction of Products of Conception, Low, Open Approach (ICD-10-PCS; CPT 59514; principal; 2021-02-18 05:00)
DX: O42.92 Full-term premature rupture of membranes, unspecified as to length of time between rupture and onset of labor (principal); Z37.0 Single live birth; Z3A.38 38 weeks gestation of pregnancy; O99.824 Streptococcus B carrier state complicating childbirth; O62.1 Secondary uterine inertia; O99.214 Obesity complicating childbirth; E66.9 Obesity, unspecified
CPT/HCPCS: 36415; 84112; 85025; 86592; 86850; 86900; 86901; 88307; A9270; J0290; J1885; J2274; J2405; J2590; J2795; J7120

== ENCOUNTER 2021-12-07 12:39 | Outpatient (CLI) | payer OTHER, SELFPAY ==
--- NOTE | ~2021-12-07 | US_ITS ---
US breast BI limited 12/07/2021 13:34 Indication: 26-year-old and lactating. Right breast pain. Palpable left breast lump. Procedure: High-resolution Limited bilateral breast ultrasound Comparison: No prior studies for comparison. Findings: Right breast is composed of normal heterogeneous echotexture without focal solid or cystic mass. In the left breast there is an oval slightly hyperechoic mass with horizontally oriented striat ions and internal vascularity. This mass measures 2.1 x 1.7 x 1 cm. No other masses of the left breas t are identified. Impression: 1: Solid hyperechoic left breast mass at 2:00, 2 cm from the nipple measuring up to 2.1 cm with inter nal vascularity. Ultrasound-guided left breast biopsy recommended. BI-RADS CATEGORY 4-SUSPICIOUS ABNORMALITY Reviewed, dictated and finalized at location A. Impression: 1: Solid hyperechoic left breast mass at 2:00, 2 cm from the nipple measuring u p to 2.1 cm with internal vascularity. Ultrasound-guided left breast biopsy rec ommended. BI-RADS CATEGORY 4-SUSPICIOUS ABNORMALITY
== END 2021-12-07 12:40 | disposition home or self-care (01) ==
PROVIDERS: PCP Internal Medicine; Visit Provider Student in an Organized Health Care Education/Training Program
DX: N63.12 Unspecified lump in the right breast, upper inner quadrant (principal)
CPT/HCPCS: 76642

== ENCOUNTER 2022-12-18 16:00 | Inpatient (IN) | payer OTHER, SELFPAY ==
--- NOTE | 2022-12-07 13:51 | PC.NURSE ---
Verified with OR schedule and patient--C/S on 12/24/22 at 1200 Patient given requisition for lab draw on 12/23/22
[2022-12-18] VITALS (60 sets, daily range): BP systolic 75–133; BP diastolic 39–109; PULSE 54–140; RESP 13–18; TEMP 36.2–36.6; O2SAT 81–100; BMI 30.2
--- NOTE | 2022-12-18 16:21 | PC.NURSE ---
Dr. Hameed returned page and informed of this 38 3/7 wks pt in active labor with history of previous C/S. Orders received for admission and C/S.
--- NOTE | 2022-12-18 16:28 | PC.NURSE ---
Dr. Hameed in to see pt and asked him if he wants Azithromycin or Ampicillin given for either her active labor or +GBS status and he declines; only Ancef needs to be given.
[2022-12-18] MEDS: LACTATED RINGERS 1,000 ML 999 ML IV CONT (16:39)
--- NOTE | 2022-12-18 16:45 | PM.IMHP ---
H&P: HPI History of Present Illness Date/Time: 12/18/22 16:45 Chief Complaint: Contractions. Narrative: 26 y/o at 38 3/7 weeks here with contractions. No leakage of fluid. GBS bacteruria this . Has anxiety and headaches, has used marijuana through . 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 Prior for arrest of dilation at 9 cm. Review of Systems Review of Systems: All systems reviewed & are unremarkable except as noted in HPI and below PMFSH Past Medical History Medical History (Updated 12/18/22 @ 16:51 by Joshua Hameed MD) Anxiety Hx of migraines Overweight or obesity and not yet delivered Surgical History Surgical History (Updated 12/18/22 @ 16:51 by Joshua Hameed MD) History of delivery Family History Family History Grandparent Diabetes mellitus Breast cancer in female Father Hypertension Mother Kidney stones Social History Social History Smoking status: Never smoker Substance use: current Last use: 12/06/22 Gender identity (if verbalized by the patient): Female Spiritual care concerns: No Meds Home Medications and Allergies Home Medications Medication Instructions Recorded Confirmed Type vit no.95-ferrous 1 tablet PO DAILY 02/10/21 04/12/21 History fumarate 28 mg-folic acid 800 mcg tablet () valacyclovir 500 mg tablet 500 mg PO DAILY 02/10/21 04/12/21 History sertraline 50 mg tablet (Zoloft) 50 mg PO DAILY 12/07/22 12/07/22 History Allergies Allergy/AdvReac Type Severity Reaction Status Date / Time latex Allergy Unknown SWELLING Verified 12/07/22 13:27 Exam Const: Orientation/consciousness: patient oriented x3 Other: Well-developed, well-nourished female in no acute distress. Neck: Thyroid: thyroid normal Lymphatic: no lymphadenopathy noted (in neck, axilla or inguinal nodes) Resp: Effort & Inspection: normal respiratory effort Auscultation: clear to auscultation bilaterally Cardio: Rate: regular rate Rhythm: regular rhythm Heart sounds: S1 normal heart sound present and S2 normal heart sound present GI: Other: ABD: Soft, nontender, nondistended, gravid. NST reactive. TOCO: contractions every 2-3 min. No guarding or rebound tenderness. No hepatosplenomegaly. : General: Yes no CVA tenderness Other: Cervix 5/80/BBOW Back/Spine/Pelvis: Back: no CVA tenderness Skin: General skin exam: normal color and no rashes or lesions noted Neuro: General: patient oriented x3 Extrem: Other: Extremities: nontender with no edema Psych: Mental Status: mental status grossly normal Affect: normal affect Assessment and Plan Assessment and plan (1) Active labor at term: Status: Acute Assessment and Plan: A: IUP at 38 3/7 weeks with labor, prior , GBS pos. P: She desires repeat . She understands risks of surgery to include risks of anesthesia, risks of pain, infection, bleeding, blood products, thromboembolic phenomena and damage to adjacent structures such as bowel, bladder, ureters, blood vessels and nerves. She understands all these risks and elects to proceed with surgery. (2) History of delivery: Code(s): Z98.891 - History of uterine scar from previous surgery Status: Acute (3) GBS (group B Streptococcus carrier), +RV culture, currently : Code(s): O99.820 - Streptococcus B carrier state complicating Status: Acute
[2022-12-18 16:51] LABS: Basophils Percent Auto 0.2 % (0.2-1.2); Eosinophils Percent Auto 0.1 % (0-4.4); Hematocrit 38.2 % (37.0-47.0); Immature Granulocyte Percent A 0.6 % (0-0.5); Lymphocytes Absolute Auto 1.97 K/mm3 (0.9-3.2); Lymphocytes Percent Auto 10.8 % (18.3-44.2); Mean Corpuscular Hemoglobin 33.9 pg (26-34); Mean Corpuscular Volume 99.7 fl (80-100); Monocytes Percent Auto 5.2 % (2.6-8.5); Neutrophils Absolute Auto 15.1 K/mm3 (1.3-6.7); Neutrophils Percent Auto 83.1 % (45.5-73.1); Platelet Count Result 329 k/mm3 (150-375); Red Blood Count 3.83 M/mm3 (4.2-5.4); Red Cell Distribution Width 12.3 % (11.5-14.5); White Blood Count 18.2 K/mm3 (4.5-10.0)
--- NOTE | 2022-12-18 16:52 | WPDHPUPDATE1 ---
History and Physical Update Update Date/Time: 12/18/22 16:52 History and Physical has been reviewed, including an updated exam of the patient. There are NO changes in the patient's condition. Risks, benefits, and alternatives have been discussed and questions answered. Patient agrees to proceed with procedure.
--- NOTE | 2022-12-18 17:01 | LDADM ---
This patient, Jose Arzola, was admitted to Labor/Delivery/Recovery 120 on 12/18/22 at 16:00 in labor. Plans for surgery/ and pain management were discussed with patient. Patient/family oriented to hospital policies and general routines including ID bracelet, bed and alarms, visiting hours, pain management, procedures, bathroom and other care routines, personal items, smoking policy, room service/diet and guest tray routines, security routines, and visiting hours. Patient/Family are encouraged to report perceived risks to care and to ask questions if they do not understand what they are told or what they should do.
[2022-12-18] MEDS: ceFAZolin 2 GM/D5W 50 ML 2 GM/50 ML BAG IVPB (17:17)
--- NOTE | 2022-12-18 17:26 | SUR.OPER ---
FHT's 140 in OR after spinal placed.
--- NOTE | 2022-12-18 17:37 | WPDANESEPPF ---
Anes - Initial Pre Proc Eval Procedure: Operation Date: 12/24/22 12:00 Proposed Procedures p Repeat Section - Clint Rodriguez MD Date/Time: 12/18/22 17:37 Surgeon: Joshua Hameed MD Pre Op Diagnosis: C/S Patient Data Age: 27 Gender: F Height: 1.55 m Weight: 72.7 kg Last Vital Signs Pulse 85 12/18/22 17:11 BP 130/61 12/18/22 17:11 O2 Del Method Room Air 12/18/22 17:01 Allergies Allergy/AdvReac Type Severity Reaction Status Date / Time latex Allergy Unknown SWELLING Verified 12/07/22 13:27 Home Medications Medication Instructions Recorded Confirmed Type vit no.95-ferrous 1 tablet PO DAILY 02/10/21 12/18/22 History fumarate 28 mg-folic acid 800 mcg tablet () valacyclovir 500 mg tablet 500 mg PO DAILY 02/10/21 12/18/22 History sertraline 50 mg tablet (Zoloft) 50 mg PO DAILY 12/07/22 12/18/22 History Laboratory Tests 12/18/22 12/18/22 12/18/22 16:43 16:43 16:43 WBC 18.2 K/mm3 H K/mm3 (4.5-10.0) RBC 3.83 M/mm3 L M/mm3 (4.2-5.4) Hgb 13.0 g/dL D g/dL (12.0-15.0) Hct 38.2 % % (37.0-47.0) MCV 99.7 fl fl (80-100) MCH 33.9 pg pg (26-34) MCHC 34.0 g/dl g/dl (32-36) RDW 12.3 % % (11.5-14.5) Plt Count 329 k/mm3 D k/mm3 (150-375) MPV 10.0 fl fl (7.4-10.4) Immature Gran % (Auto) 0.6 % H % (0-0.5) Neut % (Auto) 83.1 % H % (45.5-73.1) Lymph % (Auto) 10.8 % L % (18.3-44.2) [place] % (Auto) 5.2 % % (2.6-8.5) Eos % (Auto) 0.1 % % (0-4.4) Baso % (Auto) 0.2 % % (0.2-1.2) Lymph # (Auto) 1.97 K/mm3 K/mm3 (0.9-3.2) [place] # (Auto) 1.0 K/mm3 H K/mm3 (0.1-0.6) Eos # (Auto) 0.0 K/mm3 K/mm3 (0-0.3) Baso # (Auto) 0.0 K/mm3 K/mm3 (0.0-0.1) Abs Immat Gran (auto) 0.10 K/mm3 H K/mm3 (0.00-0.031) Absolute Neuts (auto) 15.1 K/mm3 H K/mm3 (1.3-6.7) Absolute Nucleated RBC 0.0 K/mm3 K/mm3 (0.0-0.012) Nucleated RBC % 0.0 % % (0.0-0.2) RPR Pending Blood Type A Positive Antibody Screen Pending Patient hx anesthesia problems: none Family hx anesthesia problems: none Results Review: All pre-operative results and documents have been reviewed as part of the pre-operative evaluation. [facility] Past Medical History Medical History (Updated 12/18/22 @ 16:51 by Joshua Hameed MD) Anxiety Hx of migraines Overweight or obesity and not yet delivered Surgical History Surgical History (Updated 12/18/22 @ 16:51 by Joshua Hameed MD) History of delivery Family History Family History Grandparent Diabetes mellitus Breast cancer in female Father Hypertension Mother Kidney stones Social History Social History Smoking status: Never smoker Substance use: current Last use: 12/06/22 Lack of Transportation: No Lack of Food: Never True Current Housing: I Have Housing Concerned About Future Housing: No Difficulty Paying Gas/Electric Bills: No Difficulty Paying for Meds: No Currently Unemployed: No Education: Associate Degree Difficulty w/ Childcare or Family Care: No Gender identity (if verbalized by the patient): Female Spiritual care concerns: No Anes - Eval Final PreProcedure Day of Procedure 12/18/22 17:37 Patient weight: obese Heart: regular rate and rhythm Lungs: clear to auscultation and normal air movement Airway: Mallampati scale class II Neurological: alert and oriented Last oral intake: >/= 8 hours ASA classification: II Emergent: no Anesthetic plan: proceed Anesthesia type and monitoring: regional spinal and standard monitoring Results Review: All pre-operative results and doc
--- NOTE | 2022-12-18 18:08 | PM.OBPRVD ---
OB - Delivery Note Procedure Delivery date: 12/18/22 Procedure: Procedures Operation Date: 12/18/22 17:15 <No data on this case meets the specified criteria> Prreop Dx: 1) IUP at 38 3/7 weeks; 2) Labor; 3) Prior , desires repeat. Postop Dx: Same. Procedure: Repeat low transverse delivery. Delivery monitor: External FHT and External Uterine Route of delivery: Specimen: Yes (cord blood) Quantitative Blood Loss (ml): 265 Anesthesia type: Spinal Disposition: PACU Complications: None Narrative: The patient was taken to the operating room where she was prepared and draped in the usual sterile fashion in dorsal supine position with a leftward tilt. She received cefazolin preoperatively. Spinal anesthesia was found to be adequate. A Pfannenstiel skin incision was made along the previous scar line and was carried through to the underlying layer of the fascia. The fascia was incised in the midline and the incision was extended laterally. The fascia was dissected free of the underlying rectus muscles. The rectus muscles were in the midline. The peritoneum was identified, tented up and entered sharply. The peritoneal incision was extended superiorly and inferiorly with good visualization of the bladder. The bladder blade was placed. The vesicouterine peritoneum was identified, tented up and entered sharply. The incision was extended laterally and the bladder flap was developed. The bladder blade was replaced. The uterus was then incised sharply in a transverse fashion along the lower uterine segment. The incision was extended laterally. The infant's head was delivered atraumatically to the sterile field, followed by the body. The nose and mouth were bulb suctioned. After a delay, the cord was clamped and cut. The was handed off the field. Cord blood was collected. The placenta was removed manually and was passed off the field. The uterus was exteriorized and cleared of all clots and debris. The uterine incision was reapproximated using 0 Monocryl in a running, locked fashion. Excellent hemostasis resulted as did excellent reapproximation of the normal anatomy. The uterus was returned the abdomen. The pelvis was irrigated copiously with warmed normal saline. The bladder flap was treated with Hemaderm. Rigorous hemostasis was assured. The fascial layer was reapproximated using 0 Vicryl in a running fashion. The skin was closed with a running, subcuticular stitch of 4 0 Vicryl. Dermaflex was applied externally. Sponge, lap, needle and instrument counts were correct. The patient was taken to the recovery room in stable condition. The infant went to the nursery in stable condition. I was present and scrubbed the entire procedure. Baby Date of : 12/18/22 Weeks of gestation at delivery: 38 Infant gender: Male Weight (pounds): 7 Weight (ounces): 10 presentation: vertex Placenta delivery description: Manual Removal and Normal Configuration Cord Vessel Description: 3 Vessels and Delayed Cord Clamping score one minute: 8 score five minutes: 9
--- NOTE | 2022-12-18 18:11 | P.DS_ITS ---
DS: Admitting Diagnosis Discharge Date 12/20/22 Admitting Diagnosis IUP at 38 3/7 weeks Labor Prior , desires repeat GBS colonization DS: Discharge Diagnosis Discharge Diagnosis (1) History of delivery: Code(s): Z98.891 - History of uterine scar from previous surgery Status: Acute (2) Active labor at term: Status: Acute (3) GBS (group B Streptococcus carrier), +RV culture, currently : Code(s): O99.820 - Streptococcus B carrier state complicating Status: Acute OB - DS: Summary OB Procedures : None OB Procedures Intrapartum: and GBS prophylaxis OB Procedures: : None Peripartum Data Procedures: Procedures Operation Date: 12/18/22 17:15 <No data on this case meets the specified criteria> Time Spent with Patient Time attestation: Total time spent providing and/or coordinating discharge services: DS: Data Data Completed and Pending Labs on day of discharge: Labs from last 24 hours 12/18/22 12/18/22 12/18/22 16:43 16:43 16:43 WBC 18.2 H RBC 3.83 L Hgb 13.0 D Hct 38.2 MCV 99.7 MCH 33.9 MCHC 34.0 RDW 12.3 Plt Count 329 D MPV 10.0 Immature Gran % (Auto) 0.6 H Neut % (Auto) 83.1 H Lymph % (Auto) 10.8 L [place] % (Auto) 5.2 Eos % (Auto) 0.1 Baso % (Auto) 0.2 Lymph # (Auto) 1.97 [place] # (Auto) 1.0 H Eos # (Auto) 0.0 Baso # (Auto) 0.0 Abs Immat Gran (auto) 0.10 H Absolute Neuts (auto) 15.1 H Absolute Nucleated RBC 0.0 Nucleated RBC % 0.0 RPR Pending Blood Type A Positive Antibody Screen Negative Discharge Plan Discharge Attending physician on discharge: Joshua Hameed Discharging Clinician: Joshua Hameed Patient Disposition: Home, Self-Care Activity: may shower, may drive after 2 weeks and pelvic rest Diet: regular Wound Care Instructions: incision open to air Discharge Instructions: Call or return if temperature above 100.4? F, increased abdominal pain, increased vaginal bleeding or any new problems. Stand Alone Forms: General Discharge Information Follow-up/Referrals: Joshua Hameed MD [Physician] - 4 Weeks Discharge Medications: New ibuprofen 600 mg tablet 600 mg PO Q6H PRN (Reason: cramps) Qty: 30 0RF hydrocodone-acetaminophen 5-325 mg tablet 1 - 2 tablet PO Q6H PRN (Reason: pain) Qty: 30 0RF ferrous sulfate 325 mg (65 mg iron) tablet 325 mg PO DAILY Qty: 30 0RF Continued valacyclovir 500 mg Tablet 500 mg PO DAILY PNV cmb#95-ferrous fumarate-FA [] 28 mg iron- 800 mcg Tablet 1 tablet PO DAILY sertraline [Zoloft] 50 mg Tablet 50 mg PO DAILY Date of admission: 12/18/22 16:00 Primary Care Provider: LalaMoustapha Admitting Provider: Joshua Hameed Attending physician on admission: Joshua Hameed Condition: Stable
[2022-12-18 19:13] LABS: Amphetamine Screen Urine Negative (Negative); Barbiturate Screen Urine Negative (Negative); Benzodiazepines Screen Urine Negative (Negative); Cannabinoid Screen Urine Positive (Negative); Cocaine Screen Urine Negative (Negative); Methadone Screen Urine Negative (Negative); Opiate Screen Urine Negative (Negative); Phencyclidine Screen Urine Negative (Negative)
[2022-12-18] MEDS: MORPHINE SULFATE INJ (*CRX) 10 MG/ML AMP 2 MG IV PUSH ×2 (19:43→19:53)
[2022-12-18] MEDS: OXYTOCIN 30 UNITS/NS 500 ML 30 UNITS/500 ML BAG 125 UNITS IV CONT (20:00)
[2022-12-18] MEDS: KETOROLAC 30 MG/ML VIAL (*BKC) IV PUSH (20:24)
--- NOTE | 2022-12-18 21:10 | PC.NURSE ---
Patient transferred to post room #290 via stretcher. Support person present. Oriented to unit, room, information board, rooming in, admission packet and security measures. Patient verbalizes understanding.
[2022-12-18] MEDS: ONDANSETRON INJ 4 MG/2 ML VIAL IV PUSH (23:32)
[2022-12-18] MEDS: DEXTROSE 5%/0.45% SOD CHL 1,000 ML 125 ML IV CONT (23:45)
--- NOTE | 2022-12-19 00:29 | PC.NURSE ---
Pt. called out. c/o feeling dizzy and nauseated. Vitals taken, BP 75/40 Ox 98%, pulse 93, temp 97.7 Zofran given, wet wash clothed applied to neck. Pt. states she feels better vitals returned to normal with 15 minutes. Will continue to monitor
[2022-12-19 00:45] VITALS: BP 109/60; PULSE 100; O2SAT 100
[2022-12-19] MEDS: IBUPROFEN 600 MG TABLET PO ×3 (03:01→16:15)
[2022-12-19] MEDS: KCL 20 MEQ/D5/0.45% SOD CHL 1,000 ML 125 ML IV CONT (04:28)
[2022-12-19 04:48] VITALS: BP 104/58; PULSE 91; RESP 16; TEMP 36.7; O2SAT 99
[2022-12-19 05:53] LABS: Basophils Percent Auto 0.2 % (0.2-1.2); Hematocrit 23.9 % (37.0-47.0); Hemoglobin 7.9 g/dL (12.0-15.0); Immature Granulocyte Absolute 0.08 K/mm3 (0.00-0.031); Immature Granulocyte Percent A 0.5 % (0-0.5); Lymphocytes Absolute Auto 1.53 K/mm3 (0.9-3.2); Lymphocytes Percent Auto 9.7 % (18.3-44.2); Mean Corpuscular HGB Conc 33.1 g/dl (32-36); Mean Corpuscular Hemoglobin 34.6 pg (26-34); Mean Corpuscular Volume 104.8 fl (80-100); Mean Platelet Volume 10.5 fl (7.4-10.4); Monocytes Absolute Auto 1.1 K/mm3 (0.1-0.6); Monocytes Percent Auto 6.8 % (2.6-8.5); Neutrophils Absolute Auto 13.1 K/mm3 (1.3-6.7); Neutrophils Percent Auto 82.8 % (45.5-73.1); Platelet Count Result 257 k/mm3 (150-375); Red Blood Count 2.28 M/mm3 (4.2-5.4); Red Cell Distribution Width 12.2 % (11.5-14.5); White Blood Count 15.9 K/mm3 (4.5-10.0)
[2022-12-19 07:20] VITALS: BP 128/74; PULSE 104; RESP 18; TEMP 36.7; O2SAT 100
[2022-12-19] MEDS: SIMETHICONE 80 MG TAB.CHEW PO ×2 (08:56→21:37)
--- NOTE | 2022-12-19 09:04 | P.PNOB_ITS ---
OB - PN: Subj Subjective Date/time seen: 12/19/22 09:04 Narrative: Pain OK. Tolerating diet. Would like circumcsion for son. OB - PN: Obj Data Labs 12/19/22 05:20 Labs: Laboratory Results - last 24 hr 12/18/22 12/18/22 12/18/22 16:43 16:43 18:38 WBC 18.2 H RBC 3.83 L Hgb 13.0 D Hct 38.2 MCV 99.7 MCH 33.9 MCHC 34.0 RDW 12.3 Plt Count 329 D MPV 10.0 Immature Gran % (Auto) 0.6 H Neut % (Auto) 83.1 H Lymph % (Auto) 10.8 L [place] % (Auto) 5.2 Eos % (Auto) 0.1 Baso % (Auto) 0.2 Lymph # (Auto) 1.97 [place] # (Auto) 1.0 H Eos # (Auto) 0.0 Baso # (Auto) 0.0 Abs Immat Gran (auto) 0.10 H Absolute Neuts (auto) 15.1 H Absolute Nucleated RBC 0.0 Nucleated RBC % 0.0 Urine Opiates Screen Negative Urine Methadone Screen Negative Ur Barbiturates Screen Negative Ur Phencyclidine Scrn Negative Ur Amphetamine Screen Negative U Benzodiazepines Scrn Negative Urine Cocaine Screen Negative U Cannabinoids Screen Positive A Blood Type A Positive Antibody Screen Negative 12/19/22 05:20 WBC 15.9 H RBC 2.28 L Hgb 7.9 L D Hct 23.9 L MCV 104.8 H D MCH 34.6 H MCHC 33.1 RDW 12.2 Plt Count 257 MPV 10.5 H Immature Gran % (Auto) 0.5 Neut % (Auto) 82.8 H Lymph % (Auto) 9.7 L [place] % (Auto) 6.8 Eos % (Auto) 0.0 Baso % (Auto) 0.2 Lymph # (Auto) 1.53 [place] # (Auto) 1.1 H Eos # (Auto) 0.0 Baso # (Auto) 0.0 Abs Immat Gran (auto) 0.08 H Absolute Neuts (auto) 13.1 H Absolute Nucleated RBC 0.0 Nucleated RBC % 0.0 Urine Opiates Screen Urine Methadone Screen Ur Barbiturates Screen Ur Phencyclidine Scrn Ur Amphetamine Screen U Benzodiazepines Scrn Urine Cocaine Screen U Cannabinoids Screen Blood Type Antibody Screen OB - PN A/P Plan Comments: A: POD#1, doing well. P: Routine care. Reviewed circ. Exam Narrative: AVSS I/O OK ABD soft, nontender, fundus firm. Incision c/d/i. EXT nontender
[2022-12-19] MEDS: DOCUSATE SODIUM 100 MG CAPSULE PO ×2 (10:26→16:14)
[2022-12-19] MEDS: MULTIVIT/MIN/PREN/FOL AC/IRON TABLET 1 TAB PO (10:26)
[2022-12-19] MEDS: POLYSACCHARIDE IRON COMPLEX 150 MG CAPSULE PO ×2 (10:26→16:14)
[2022-12-19] MEDS: SERTRALINE HCL 50 MG TABLET PO (10:26)
--- NOTE | 2022-12-19 10:40 | P.PNAN_ITS ---
Anes - Prog Note Post-Op Date/Time: 12/19/22 10:40 Vital Signs: Last Vital Signs Temp 36.7 C 12/19/22 07:20 Pulse 104 H 12/19/22 07:20 Resp 18 12/19/22 07:20 BP 128/74 12/19/22 07:20 Pulse Ox 100 12/19/22 07:20 O2 Del Method Room Air 12/18/22 18:11 Pain Score (VAS): 0 I/O: Intake & Output 12/18/22 12/19/22 12/19/22 23:59 07:59 15:59 Intake Total 1290 1300 Output Total 225 225 600 Balance 1065 1075 -600 Laboratory Tests 12/19/22 05:20 12/18/22 12/18/22 12/18/22 16:43 16:43 16:43 WBC 18.2 H RBC 3.83 L Hgb 13.0 D Hct 38.2 MCV 99.7 MCH 33.9 MCHC 34.0 RDW 12.3 Plt Count 329 D MPV 10.0 Immature Gran % (Auto) 0.6 H Neut % (Auto) 83.1 H Lymph % (Auto) 10.8 L [place] % (Auto) 5.2 Eos % (Auto) 0.1 Baso % (Auto) 0.2 Lymph # (Auto) 1.97 [place] # (Auto) 1.0 H Eos # (Auto) 0.0 Baso # (Auto) 0.0 Abs Immat Gran (auto) 0.10 H Absolute Neuts (auto) 15.1 H Absolute Nucleated RBC 0.0 Nucleated RBC % 0.0 Urine Opiates Screen Urine Methadone Screen Ur Barbiturates Screen Ur Phencyclidine Scrn Ur Amphetamine Screen U Benzodiazepines Scrn Urine Cocaine Screen U Cannabinoids Screen RPR Pending Blood Type A Positive Antibody Screen Negative 12/18/22 12/19/22 18:38 05:20 WBC 15.9 H RBC 2.28 L Hgb 7.9 L D Hct 23.9 L MCV 104.8 H D MCH 34.6 H MCHC 33.1 RDW 12.2 Plt Count 257 MPV 10.5 H Immature Gran % (Auto) 0.5 Neut % (Auto) 82.8 H Lymph % (Auto) 9.7 L [place] % (Auto) 6.8 Eos % (Auto) 0.0 Baso % (Auto) 0.2 Lymph # (Auto) 1.53 [place] # (Auto) 1.1 H Eos # (Auto) 0.0 Baso # (Auto) 0.0 Abs Immat Gran (auto) 0.08 H Absolute Neuts (auto) 13.1 H Absolute Nucleated RBC 0.0 Nucleated RBC % 0.0 Urine Opiates Screen Negative Urine Methadone Screen Negative Ur Barbiturates Screen Negative Ur Phencyclidine Scrn Negative Ur Amphetamine Screen Negative U Benzodiazepines Scrn Negative Urine Cocaine Screen Negative U Cannabinoids Screen Positive A RPR Blood Type Antibody Screen Patient Feedback: Patient satisfied with anesthetic care.
--- NOTE | 2022-12-19 10:40 | WPDANLDNPN2 ---
Anes-Prog Note L&D-Neuraxial Date/Time: 12/19/22 10:40 Patient feedback: Patient satisfied with post-operative pain management.
[2022-12-19 12:10] VITALS: BP 114/64; PULSE 110; RESP 18; TEMP 36.9; O2SAT 99
[2022-12-19 12:12] LABS: Rapid Plasma Reagin Non-Reactive (NonReactive)
[2022-12-19] MEDS: HYDROcodone/acetaminophen (*CRX) 5-325 MG TABLET 1 TAB PO ×3 (13:11→20:55)
--- NOTE | 2022-12-19 14:42 | PC.NURSE ---
[id number] Introductions were made, then consulted with patient to assess needs related to . Mother led the conversation with her?plans to feed?her infant and the?experience so far. Resources provided for inpatient and outpatient services with the feeding sheet, mom/baby guide and name written on the white board. Mother voiced understanding of information and will call if there is a request for assistance. Reported to the primary RN. [phone] Consulted after a request. Mother works well with her with encouragement and education. Encouraged understanding of the benefits of skin to skin (demonstrating unwrapping infant and placing upright on her chest), stimulating with massage touch, changing positions to encourage wakefulness, how to watch for early feeding cues, responsive feeding, feeding on demand (aiming for 8-12 times in 24 hours, about every 2-3 hours), milk production, building/maintaining a milk supply, duration of feeding, signs of adequate intake/output and how to record on the feeding sheet. Reviewed positioning and ear, shoulder, hip alignment, supporting the breast to facilitate a deep latch, asymmetrical latch (off-center), leading with the chin with a big, open, wide gape and body close to mother. Mother demonstrates knowledge and expresses that she has a successful history of her first child for 14 months. Mother states this infant is not opening the mouth as well as her first and she mentions a tied tongue. Assessed the infants mouth and no forking of the tongue was visualized along with infant demonstrating the ability to extend the tongue past the gumline. Infant latched optimally to the left breast in football position. Education given to mother of how to visualize suck/swallow ratios and listen for drinking at the breast. was able to maintain latch without discomfort to mother. After repositioned there was some pinching discomfort and mother detached infant from the breast. Slight crease was visualized. Nipple care reviewed with optimal latch and good positioning. Infant was placed skin to skin, then after feeding cues was latched effectively to the right breast using the football positioning. Mother denied pain and swallowing was visualized and heard. Reminding mother of comfort measures of healing with a warm and wet washcloth to rinse breast, then leave open to air-dry as needed. Changing positions as needed and expressing breastmilk onto the nipples to dry for healing if needed. Reviewed good handwashing when or touching the breast/nipples to prevent infection. Resources used to facilitate learning were used with the tool. Mother voiced understanding of skin to skin, stimulating with massage touch, responsive feedings, hand expressed colostrum, talking to to encourage if it has been 2 -2.5 hours since the start of the last , to call if does not latch, or if there is discomfort with . Resources provided for inpatient/outpatient with feeding sheet and the mom/baby guide. Parents voiced understanding of information, demonstrated learning and will call if there is a request for assistance. Reported to the Primary RN.
[2022-12-19 19:47] VITALS: BP 123/64; PULSE 114; RESP 20; TEMP 36.5; O2SAT 100
[2022-12-19 20:22] VITALS: PULSE 100
[2022-12-20] MEDS: IBUPROFEN 600 MG TABLET PO ×2 (04:55→11:00)
[2022-12-20] MEDS: HYDROcodone/acetaminophen (*CRX) 5-325 MG TABLET 1 TAB PO ×2 (04:55→11:00)
[2022-12-20 07:00] VITALS: BP 143/80; PULSE 108; RESP 18; TEMP 36.5; O2SAT 100
--- NOTE | 2022-12-20 08:54 | PM.OBPNVD ---
OB - PN: Subj Subjective Date/time seen: 12/20/22 08:54 Narrative: Pain OK. Tolerating diet. Would like to go home. OB - PN: Obj Data Labs 12/19/22 05:20 Labs: Laboratory Results - last 24 hr 12/18/22 16:43 RPR Non-reactive OB - PN A/P Plan Comments: A: POD#2, doing well. P: Home to f/u 4 weeks. Exam Narrative: AVSS ABD soft, nontender, fundus firm. Incision c/d/i. EXT nontender
--- NOTE | 2022-12-20 09:38 | PC.NURSE ---
[id number] Purposefully rounded to assess needs today. Mother verbalizes she is able to independently latch with appropriate positioning/alignment, however; there was a sleepy latch where mom and infant didn't do the best latch and mother has a bruise on the left nipple. She is responsively . Reviewed together in discussion latch and positioning encouraging the best big, open, wide gape to protect the nipple. Mother has a successful history of 14 months with her first son. is currently meeting outcomes for weight, output, jaundice and feeding frequencies of 8-12 times in 24 hours. Mother declines any additional assistance/education at this time. Mother is encouraged to call for assistance if her doesn?t latch or there is discomfort with latching. Mother voiced understanding of information shared and the mom reminded of the mom/baby guide for an additional resource.
[2022-12-20] MEDS: MULTIVIT/MIN/PREN/FOL AC/IRON TABLET 1 TAB PO (10:59)
[2022-12-20] MEDS: DOCUSATE SODIUM 100 MG CAPSULE PO (10:59)
[2022-12-20] MEDS: SERTRALINE HCL 50 MG TABLET PO (10:59)
[2022-12-20] MEDS: POLYSACCHARIDE IRON COMPLEX 150 MG CAPSULE PO (10:59)
[2022-12-21 07:49] VITALS: BP 120/54; PULSE 91; RESP 20; TEMP 36.6; O2SAT 99
== END 2022-12-20 12:18 | disposition home or self-care (01) | DRG 540 ==
LOC: ANHLDR 18:12 → ANHOB2 21:32
PROVIDERS: Admitting Provider Obstetrics & Gynecology; PCP Internal Medicine; Visit Provider Obstetrics & Gynecology
PROC: 10D00Z1 Extraction of Products of Conception, Low, Open Approach (ICD-10-PCS; CPT 59514; principal; 2022-12-18 17:00)
DX: O34.211 Maternal care for low transverse scar from previous cesarean delivery (principal); O98.32 Other infections with a predominantly sexual mode of transmission complicating childbirth; Z37.0 Single live birth; Z3A.38 38 weeks gestation of pregnancy; O99.824 Streptococcus B carrier state complicating childbirth; O77.0 Labor and delivery complicated by meconium in amniotic fluid; A60.09 Herpesviral infection of other urogenital tract; O99.344 Other mental disorders complicating childbirth; F41.9 Anxiety disorder, unspecified
CPT/HCPCS: 36415; 80307; 85025; 86592; 86850; 86900; 86901; A9270; J0131; J0690; J1885; J2270; J2274; J2405; J2590; J3480; J7120

== ENCOUNTER 2025-05-13 12:58 | Outpatient (CLI) | payer OTHER, SELFPAY ==
--- NOTE | ~2025-05-13 | US_ITS ---
EXAMINATION: US OB <=14 wk fetus w TV DATE: 05/13/2025 13:58 INDICATION: Amenorrhea, unspecified. TECHNIQUE: Real-time transabdominal pelvic ultrasound was performed. COMPARISON: None. FINDINGS: The uterus measures 7.9 x 7.5 x 8.0 cm. There is an intrauterine gestational sac. A yolk sac is identified. The crown rump length measures 3.3 cm, which correlates with an estimated gestational age of 10 weeks and 1 day(s) (+/- ) 6 day(s). heart motion is identified measuring 168 beats per minute (bpm) by M-mode Doppler. There is a small subchorionic hematoma. The right ovary measures 3.7 x 2.4 x 2.5 cm. The left ovary is not visualized. There is no free fluid in the pelvis. IMPRESSION: 1. Single living intrauterine gestation with estimated date of delivery of 12/08/2025. 2. Small subchorionic hematoma. Reviewed, dictated and finalized at location E. IMPRESSION: 1. Single living intrauterine gestation with estimated date of delivery of 12/08. 2. Small subchorionic hematoma.
== END 2025-05-13 12:59 | disposition home or self-care (01) ==
PROVIDERS: PCP Internal Medicine; Visit Provider Nurse Practitioner Obstetrics & Gynecology
DX: N91.2 Amenorrhea, unspecified (principal)
CPT/HCPCS: 76801; 76817

== ENCOUNTER 2025-06-08 14:27 | Outpatient (CLI) | payer OTHER, SELFPAY ==
[2025-06-08 14:56] LABS: Hematocrit 36.2 % (37.0-47.0); Hemoglobin 12.4 g/dL (12.0-15.0); Mean Corpuscular HGB Conc 34.3 g/dl (32-36); Mean Corpuscular Hemoglobin 34.0 pg (26-34); Mean Corpuscular Volume 99.2 fl (80-100); Platelet Count Result 249 k/mm3 (150-375); Red Blood Count 3.65 M/mm3 (4.2-5.4); White Blood Count 11.8 K/mm3 (4.5-10.0)
[2025-06-08 15:00] LABS: Add Urine Microscopic? YES; Appearance Urine Cloudy (Clear); Glucose Urine UA Negative (Negative); Leukocyte Esterase Ur Negative LEU/UL (Negative); Nitrate Urine Negative (Negative); Non Pathogenic Casts 0-2; Specific Grav Ur 1.026 (1.001-1.035)
[2025-06-08 15:50] LABS: Syphilis IgG/IgM Antibody Non-Reactive (Nonreactive)
[2025-06-08 15:52] LABS: Thyroid Stimulating Hormone 0.502 uIU/mL (0.465-4.680)
[2025-06-08 15:54] LABS: Hepatitis B Surface Antigen Negative (Negative)
[2025-06-08 16:02] LABS: HIV 1/2 Ab P24 Ag Result Negative (Negative)
[2025-06-09 06:08] LABS: Varicella-Zoster Ab, IgG Reactive (Non Reactive)
== END 2025-06-08 14:28 | disposition home or self-care (01) ==
LOC: ANHLAB 14:28
PROVIDERS: Visit Provider Obstetrics & Gynecology
DX: Z34.90 Encounter for supervision of normal pregnancy, unspecified, unspecified trimester (principal); Z3A.00 Weeks of gestation of pregnancy not specified
CPT/HCPCS: 36415; 81001; 83020; 84443; 85027; 85660; 86593; 86703; 86762; 86787; 86803; 86850; 86900; 86901; 87086; 87340; G0432